=== PATIENT | male | born 1995 | race American Indian/Alaskan Native ===

== ENCOUNTER 2016-05-25 04:46 | Emergency (ER) | payer SELFPAY ==
[2016-05-25 04:47] VITALS: BMI 21.6
[2016-05-25 04:54] VITALS: O2SAT 100
--- NOTE | 2016-05-25 05:26 | ED PDOC ---
Arrival/HPI - General Chief Complaint: Flu-like Symptoms Time Seen by Provider: 05/25/16 04:50 Historian: Patient - History of Present Illness Narrative History of Present Illness (Text): 05/25/16 05:22 Doris Bui is a 21 year old male who presents to the emergency department for evaluation of generalized body aches associated with subjective fever and 1 episode of vomiting since yesterday. Patient also reports of mild headache. No sick contacts at home. Report he did not have his flu shot this year. Took Theraflu last night for minimal relief. Denies shortness of breath, diarrhea, urinary symptoms or any other complaints at this time. Time/Duration: Other (yesterday ) Symptom Onset: Gradual Symptom Course: Unchanged Severity Level: Mild Activities at Onset: Light Past Medical History - Provider Review Nursing Documentation Reviewed: Yes - Infectious Disease Hx of Infectious Diseases: None - Tetanus Immunization Tetanus Immunization: Unknown - Past Medical History Past Medical History: No Previous - Psychiatric Hx Substance Use: No - Past Surgical History Past Surgical History: No Previous - Anesthesia Hx Anesthesia: No - Suicidal Assessment Feels Threatened In Home Enviroment: No Family/Social History - Physician Review Nursing Documentation Reviewed: Yes Family/Social History: No Known Family HX Smoking Status: Never Smoked Hx Alcohol Use: No Hx Substance Use: No Hx Substance Use Treatment: No Allergies/Home Meds Allergies/Adverse Reactions: Allergies No Known Allergies Allergy (Verified 05/25/16 04:56) Review of Systems - Physician Review All systems were reviewed & negative as marked: Yes - Review of Systems Constitutional: Fatigue, Fevers Respiratory: absent: SOB, Cough, Sputum Cardiovascular: absent: Chest Pain Gastrointestinal: Nausea, Vomiting. absent: Abdominal Pain Neurological: Headache. absent: Dizziness Psychiatric: Normal Physical Exam Vital Signs Reviewed: Yes Vital Signs Temp Pulse Resp BP Pulse Ox 05/25/16 04:53 99.1 F 94 H 17 112/67 100 Temperature: Afebrile Blood Pressure: Normal Pulse: Regular Respiratory Rate: Normal Appearance: Positive for: Well-Appearing, Non-Toxic, Comfortable Pain Distress: None Mental Status: Positive for: Alert and Oriented X 3 - Systems Exam Head: Present: Atraumatic, Normocephalic Pupils: Present: PERRL Extroacular Muscles: Present: EOMI Conjunctiva: Present: Normal Ears: Present: Normal, NORMAL TM, Normal Canal. No: Erythema, TM Bulging Mouth: Present: Moist Mucous Membranes Pharnyx: Present: Normal. No: ERYTHEMA, EXUDATE, TONSILS ENLARGED Neck: Present: Normal Range of Motion Respiratory/Chest: Present: Clear to Auscultation, Good Air Exchange. No: Respiratory Distress, Accessory Muscle Use Cardiovascular: Present: Regular Rate and Rhythm, Normal S1, S2. No: Murmurs Abdomen: Present: Normal Bowel Sounds. No: Tenderness, Distention, Peritoneal Signs Back: Present: Normal Inspection Upper Extremity: Present: Normal Inspection. No: Cyanosis, Edema Lower Extremity: Present: Normal Inspection. No: Edema Neurological: Present: GCS=15, CN II-XII Intact, Speech Normal, Motor Func Grossly Intact, Normal Sensory Function Skin: Present: Warm, Dry, Normal Color. No: Rashes Psychiatric: Present: Alert, Oriented x 3, Normal Insight, Normal Concentration Medical Decision Making ED Course and Treatment: 05/25/16 05:28 Impression: A 21 year old male who presents to the emergency department complaining of generalized weakness associated with 1 bout of vomiting and fever since yesterday. Plan: -- Motrin -- Zofran -- Influenza -- Reassess and disposition Progress Notes: Re-evaluation Time: 07:10 Reassessment Condition: Re-examined, Improved - Lab Interpretations Lab Results: Lab Results 05/25/16 05:00: Influenza Typ A,B (EIA) Negative for flu a/b - Medication Orders Current Medication Orders: Discontinued Medications Ibuprofen (Motrin Tab) 400 mg PO ONCE STA Stop: 05/25/16 05:04 Last Admin: 05/25/16 05:18 Dose: 400 MG MAR Pain/Vitals Document 05/25/16 05:18 CARRIE (Rec: 05/25/16 05:18 CARRIE [id number]) Pain Reassessment Is This A Pain ReAssessment? Yes Sleep Is patient sleeping during reassessment? No Presence of Pain Presence of Pain Yes Location Pain Location Body Site Generalized Ondansetron HCl (Zofran Odt) 8 mg PO STAT STA Stop: 05/25/16 05:03 Last Admin: 05/25/16 05:17 Dose: 8 MG - Scribe Statement The provider has reviewed the documentation as recorded by the Evelia Clifford Provider Attestation: All medical record entries made by the Scribe were at my direction and personally dictated by me. I have reviewed the chart and agree that the record accurately reflects my personal performance of the history, physical exam, medical decision making, and the department course for this patient. I have also personally directed, reviewed, and agree with the discharge instructions and disposition. Disposition/Present on Arrival - Present on Arrival Any Indicators Present on Arrival: No History of DVT/PE: No History of Uncontrolled Diabetes: No Urinary Catheter: No History of Decub. Ulcer: No History Surgical Site Infection Following: None - Disposition Have Diagnosis and Disposition been Completed?: Yes Diagnosis: Viral infection Disposition: HOME/ ROUTINE Disposition Time: 07:11 Condition: GOOD Discharge Instructions (ExitCare): Viral Syndrome (ED) Prescriptions: Oseltamivir [Tamiflu] 75 mg PO BID #14 cap Ondansetron [Zofran Odt] 8 mg PO TID PRN #10 odt PRN Reason: Nausea/Vomiting
[2016-05-25 07:44] VITALS: BP 108/72; PULSE 80; RESP 16; TEMP 99
== END 2016-05-25 07:47 | disposition home or self-care (01) ==
LOC: ED 04:46
DX: B34.9 Viral infection, unspecified (principal)

== ENCOUNTER 2017-12-06 10:19 | Emergency (ER) | payer OTHER ==
[2017-12-06 10:49] VITALS: RESP 18; BMI 20.9
[2017-12-06] MEDS ORDERED: cefTRIAXone (Rocephin) 250 mg Inj IM STA (11:00)
--- NOTE | 2017-12-06 11:15 | ED PDOC ---
Addendum entered and electronically signed by Molly Burns PA-C, PA-C 12/08/17 16:25: Addendum Addendum: 12/08/17 16:24 +Chlamydia, pt notified. Advised to f/u, pt verbalize understanding of instructions. Original Note: Arrival/HPI - General Historian: Patient - History of Present Illness Narrative History of Present Illness (Text): 12/06/17 11:12 22yo male with no pmhx who present requesting treatment for chlamydia. States his girlfriend tested positive and was treated for chlamydia last week. Reports having penile discharge 2weeks ago. Denies abdominal pain, penile lesion, rash, any other complaint. <QuanHappiness A - Last Filed: 12/06/17 11:12> <Molly Burns PA-C - Last Filed: 12/08/17 16:24> <David Cantu - Last Filed: 12/11/17 18:58> - General Chief Complaint: Male Genitourinary Time Seen by Provider: 12/06/17 10:30 Past Medical History - Provider Review Nursing Documentation Reviewed: Yes - Infectious Disease Hx of Infectious Diseases: None - Tetanus Immunization Tetanus Immunization: Unknown - Past Medical History Past Medical History: No Previous - Psychiatric Hx Substance Use: No - Past Surgical History Past Surgical History: No Previous - Anesthesia Hx Anesthesia: No - Suicidal Assessment Feels Threatened In Home Enviroment: No <Diru,Happiness A - Last Filed: 12/06/17 11:12> Family/Social History - Physician Review Nursing Documentation Reviewed: Yes Family/Social History: Unknown Family HX Smoking Status: Never Smoked Hx Alcohol Use: No Hx Substance Use: No Hx Substance Use Treatment: No <Diru,Happiness A - Last Filed: 12/06/17 11:12> Allergies/Home Meds <DiruHappiness A - Last Filed: 12/06/17 11:12> <Molly Burns PA-C - Last Filed: 12/08/17 16:24> <David Cantu - Last Filed: 12/11/17 18:58> Allergies/Adverse Reactions: Allergies No Known Allergies Allergy (Verified 12/06/17 10:49) Home Medications: Home Meds Medication Instructions Recorded Confirmed RX: No Known Home Med 12/06/17 12/06/17 Review of Systems - Physician Review All systems were reviewed & negative as marked: Yes - Review of Systems Constitutional: Normal Eyes: Normal ENT: Normal Respiratory: Normal Cardiovascular: Normal Gastrointestinal: Normal Genitourinary Male: Other (Penile discharge) Musculoskeletal: Normal Skin: Normal Neurological: Normal Endocrine: Normal Hemo/Lymphatic: Normal Psychiatric: Normal <[employer] A - Last Filed: 12/06/17 11:12> Physical Exam Vital Signs Reviewed: Yes Vital Signs Temp Pulse Resp BP Pulse Ox 12/06/17 10:40 97.7 F 64 18 125/45 L 98 Temperature: Afebrile Blood Pressure: Normal Pulse: Regular Respiratory Rate: Normal Appearance: Positive for: Well-Appearing, Non-Toxic, Comfortable Pain Distress: None Mental Status: Positive for: Alert and Oriented X 3 - Systems Exam Head: Present: Atraumatic, Normocephalic Pupils: Present: PERRL Extroacular Muscles: Present: EOMI Conjunctiva: Present: Normal Mouth: Present: Moist Mucous Membranes Neck: Present: Normal Range of Motion Respiratory/Chest: Present: Clear to Auscultation, Good Air Exchange. No: Respiratory Distress, Accessory Muscle Use Cardiovascular: Present: Regular Rate and Rhythm, Normal S1, S2. No: Murmurs Abdomen: No: Tenderness, Distention, Peritoneal Signs Back: Present: Normal Inspection Upper Extremity: Present: Normal Inspection. No: Cyanosis, Edema Lower Extremity: Present: Normal Inspection. No: Edema Neurological: Present: GCS=15, CN II-XII Intact, Speech Normal Skin: Present: Warm, Dry, Normal Color. No: Rashes Psychiatric: Present: Alert, Oriented x 3, Normal Insight, Normal Concentration <Eve A - Last Filed: 12/06/17 11:12> Vital Signs Temp Pulse Resp BP Pulse Ox 12/06/17 12:03 97.8 F 72 18 127/69 99 12/06/17 10:40 97.7 F 64 18 125/45 L 98 <David Cantu - Last Filed: 12/11/17 18:58> Medical Decision Making - Medication Orders Current Medication Orders: Discontinued Medications Azithromycin (Zithromax) 1,000 mg PO STAT STA; Protocol Stop: 12/06/17 11:11 Ceftriaxone Sodium (Rocephin) 250 mg IM STAT STA; Protocol Stop: 12/06/17 11:01 <Frida Glass - Last Filed: 12/06/17 11:12> - Lab Interpretations Lab Results: Lab Results 12/06/17 10:55: C.trachomatis RNA (TMA) Detected H, N.gonorrhoeae RNA (TMA) Not detected - Medication Orders Current Medication Orders: Discontinued Medications Azithromycin (Zithromax) 1,000 mg PO STAT STA; Protocol Stop: 12/06/17 11:11 Last Admin: 12/06/17 11:51 Dose: 1,000 mg Ceftriaxone Sodium (Rocephin) 250 mg IM STAT STA; Protocol Stop: 12/06/17 11:01 Last Admin: 12/06/17 11:51 Dose: 250 mg IM Administration Charges Document 12/06/17 11:51 HI (Rec: 12/06/17 11:51 HI [id number]) Injection Site MAR Injection Site Left Gluteus Francois Charges for Administration # of IM Administrations 1 <David Cantu - Last Filed: 12/11/17 18:58> - PA / SENIOR CYBER SECURITY ANALYST / Resident Statement / has reviewed & agrees with the documentation as recorded. <David Cantu - Last Filed: 12/11/17 18:58> Disposition/Present on Arrival - Present on Arrival Any Indicators Present on Arrival: No History of DVT/PE: No History of Uncontrolled Diabetes: No Urinary Catheter: No History of Decub. Ulcer: No History Surgical Site Infection Following: None - Disposition Have Diagnosis and Disposition been Completed?: Yes Disposition Time: 11:20 Patient Plan: Discharge <Frida Glass - Last Filed: 12/06/17 11:12> <Molly Burns PA-C - Last Filed: 12/08/17 16:24> <David Cantu - Last Filed: 12/11/17 18:58> - Disposition Diagnosis: Venereal disease contact Disposition: HOME/ ROUTINE Condition: STABLE Discharge Instructions (ExitCare): Sexually-Transmitted Diseases Additional Instructions: Follow up with your Doctor Return to ED for any new symptoms Referrals: Della Irizarry MD [Medical Doctor] - Follow up with primary Forms: [employer] (Khmer)
[2017-12-06 12:06] VITALS: BP 127/69; PULSE 72; TEMP 97.8; O2SAT 99
== END 2017-12-06 12:06 | disposition home or self-care (01) ==
LOC: ED 10:19
DX: Z20.2 Contact with and (suspected) exposure to infections with a predominantly sexual mode of transmission (principal)
CPT/HCPCS: 87491; 87591; 96372; 99283; J0696

== ENCOUNTER 2018-01-18 03:47 | Emergency (ER) | payer SELFPAY ==
[2018-01-18 03:48] VITALS: BMI 21.6
--- NOTE | 2018-01-18 04:17 | ED PDOC ---
Arrival/HPI - General Chief Complaint: Lower Extremity Problem/Injury Time Seen by Provider: 01/18/18 04:11 Historian: Patient - History of Present Illness Narrative History of Present Illness (Text): 01/18/18 04:16 Doris Bui is a 22 year old male who presents to the Emergency department complaining of right great toe. Patient states a chair fell on to his right great toe yesterday evening and has been experiencing pain with swelling to the area since then. Patient was initially seen at another Emergency department in [place] for similar complaint and patient states they "cut holes and drained" his toe, however patient is still experiencing pain. Patient denies any weakness/numbness/tingling in the extremity, decreased range of motion, other trauma/injury, or any other complaints. Symptom Onset: Gradual Symptom Course: Unchanged Activities at Onset: Light Context: Home Past Medical History - Provider Review Nursing Documentation Reviewed: Yes - Infectious Disease Hx of Infectious Diseases: None - Tetanus Immunization Tetanus Immunization: Unknown - Past Medical History Past Medical History: No Previous - Psychiatric Hx Substance Use: No - Past Surgical History Past Surgical History: No Previous - Anesthesia Hx Anesthesia: No - Suicidal Assessment Feels Threatened In Home Enviroment: No Family/Social History - Physician Review Nursing Documentation Reviewed: Yes Family/Social History: Unknown Family HX Smoking Status: Never Smoked Hx Alcohol Use: No Hx Substance Use: No Hx Substance Use Treatment: No Allergies/Home Meds Allergies/Adverse Reactions: Allergies No Known Allergies Allergy (Verified 01/18/18 04:03) Review of Systems - Physician Review All systems were reviewed & negative as marked: Yes - Review of Systems Respiratory: absent: SOB Cardiovascular: absent: Chest Pain Musculoskeletal: Other (+right great toe pain). absent: Back Pain, Neck Pain Physical Exam Vital Signs Reviewed: Yes Vital Signs Pulse Resp BP Pulse Ox 01/18/18 03:55 76 18 149/79 98 Temperature: Afebrile Blood Pressure: Normal Pulse: Regular Respiratory Rate: Normal Appearance: Positive for: Well-Appearing, Non-Toxic, Comfortable Pain Distress: None Mental Status: Positive for: Alert and Oriented X 3 - Systems Exam Head: Present: Atraumatic, Normocephalic Pupils: Present: PERRL Extroacular Muscles: Present: EOMI Conjunctiva: Present: Normal Mouth: Present: Moist Mucous Membranes Lower Extremity: Present: NORMAL PULSES, Other (Right 1st digit subungal hematoma, right 1st digit nail lifting). No: Edema, Cyanosis Neurological: Present: GCS=15, CN II-XII Intact, Speech Normal Skin: Present: Warm, Dry, Normal Color. No: Rashes Psychiatric: Present: Alert, Oriented x 3, Normal Insight, Normal Concentration Medical Decision Making ED Course and Treatment: 01/18/18 04:17 Impression: 22 year old male complaining of right great toe pain and swelling. Plan: -- XR Right Foot -- Percocet -- Reassess and disposition Prior Visits: Notes and results from previous visits were reviewed. Progress Notes: Procedure: Subungal Hematoma Drainage Performed by the emergency provider Indication: Subungal hematoma Location: Right Great Tie Preparation: The area was prepped and draped in the usual sterile fashion and was cleansed with sterile saline and [place]. Procedure: Subungal hematoma was incised with a high temperature cautery. Approximately 2 cc of blood was obtained. A dressing was applied by the RN. Post-Procedure: The patient tolerated the procedure well and there were no complications. CSM remains intact. Post procedure dressing applied. 01/18/18 04:55 XR Right Foot reviewed, shows no acute processes/fractures. 01/18/18 05:00 On re-evaluation, patient feels better and is in no acute distress. I have discussed the results and plan with the patient, who expresses understanding. Patient in agreement with plan to be discharged home. Patient is stable for discharge. Patient was instructed to follow up with physician or return if symptoms worsen or new concerning symptoms arise. - RAD Interpretation Decorative Engraver: ED Physician - Scribe Statement The provider has reviewed the documentation as recorded by the Evelia Noe Provider Scribe Attestation: All medical record entries made by the Corrinaibash were at my direction and personally dictated by me. I have reviewed the chart and agree that the record accurately reflects my personal performance of the history, physical exam, medical decision making, and the department course for this patient. I have also personally directed, reviewed, and agree with the discharge instructions and disposition. Disposition/Present on Arrival - Present on Arrival Any Indicators Present on Arrival: No History of DVT/PE: No History of Uncontrolled Diabetes: No Urinary Catheter: No History of Decub. Ulcer: No History Surgical Site Infection Following: None - Disposition Have Diagnosis and Disposition been Completed?: Yes Diagnosis: Subungual hematoma of great toe of right foot Disposition: HOME/ ROUTINE Disposition Time: 05:00 Condition: IMPROVED Discharge Instructions (ExitCare): Toe Injury (DC) Prescriptions: Tramadol HCl [Ultram] 50 mg PO QID #8 tab Referrals: Rodney Leggett DPM [Staff Provider] - Follow up with primary Forms: [employer] (Albanian)
[2018-01-18] MEDS ORDERED: Oxycodone/Acetaminophen 5/325 mg Tab PO STA (04:22)
[2018-01-18 05:51] VITALS: BP 122/71; PULSE 80; RESP 16; O2SAT 97
--- NOTE | 2018-01-18 09:58 | RAD ---
Date of service: 01/18/2018 PROCEDURE: Right Foot Radiographs. HISTORY: injury COMPARISON: None. FINDINGS: BONES: Normal. No fracture. JOINTS: Normal. SOFT TISSUES: Normal. OTHER FINDINGS: None. IMPRESSION: Normal right foot radiographs.
== END 2018-01-18 05:40 | disposition home or self-care (01) ==
LOC: ED 03:47
DX: S90.111A Contusion of right great toe without damage to nail, initial encounter (principal); W22.8XXA Striking against or struck by other objects, initial encounter; Y92.9 Unspecified place or not applicable

== ENCOUNTER 2018-01-23 16:42 | Emergency (ER) | payer OTHER ==
[2018-01-23 16:45] VITALS: BMI 20.9
--- NOTE | 2018-01-23 17:05 | ED PDOC ---
Arrival/HPI - General Chief Complaint: Trauma Time Seen by Provider: 01/23/18 16:55 Historian: Patient - History of Present Illness Narrative History of Present Illness (Text): 01/23/18 16:55 22 year old male, with no significant past medical history, presents to the emergency department complaining of right toe injury and bleeding. Patient was seen in the ER on 01/18/18 s/p dropping a chair on his right foot. He was discharged with a podiatry follow up after drainage of subungual hematoma. Patient never followed up with podiatry. He states over the last few days, his right great toe has been more bruised and swollen. This afternoon he states he bumped it against a door and popped the blister causing bleeding. Patient was unable to control the bleeding which prompted this visit to emergency room. Patient denies any fever, chills, chest pain, shortness of breath, abdominal pain, nausea, vomiting, diarrhea, urinary symptoms, back pain, neck pain, numbness/parathesia, headache, dizziness, or any other complaints. PMD: None Time/Duration: Other (last few days) Symptom Onset: Gradual Symptom Course: Unchanged Activities at Onset: Light Context: Home Past Medical History - Provider Review Nursing Documentation Reviewed: Yes - Infectious Disease Hx of Infectious Diseases: None - Tetanus Immunization Tetanus Immunization: Unknown - Past Medical History Past Medical History: No Previous - Psychiatric Hx Substance Use: No - Past Surgical History Past Surgical History: No Previous - Anesthesia Hx Anesthesia: No - Suicidal Assessment Feels Threatened In Home Enviroment: No Family/Social History - Physician Review Nursing Documentation Reviewed: Yes Family/Social History: No Known Family HX Smoking Status: Never Smoked Hx Alcohol Use: No Hx Substance Use: No Hx Substance Use Treatment: No Allergies/Home Meds Allergies/Adverse Reactions: Allergies No Known Allergies Allergy (Verified 01/23/18 16:47) Review of Systems - Physician Review All systems were reviewed & negative as marked: Yes - Review of Systems Constitutional: absent: Fevers, Other (chills) Respiratory: absent: SOB Cardiovascular: absent: Chest Pain Gastrointestinal: absent: Diarrhea, Nausea, Vomiting Genitourinary Male: absent: Frequency, Hematuria Musculoskeletal: absent: Back Pain, Neck Pain Skin: Other (right toe injury and bleeding) Neurological: absent: Headache, Dizziness, Other (weakness/parathesia) Physical Exam Vital Signs Reviewed: Yes Vital Signs Temp Pulse Resp BP Pulse Ox 01/23/18 16:45 97.8 F 64 17 110/70 98 Temperature: Afebrile Blood Pressure: Normal Pulse: Regular Respiratory Rate: Normal Appearance: Positive for: Well-Appearing, Non-Toxic, Comfortable Pain Distress: None Mental Status: Positive for: Alert and Oriented X 3 - Systems Exam Head: Present: Atraumatic, Normocephalic Pupils: Present: PERRL Extroacular Muscles: Present: EOMI Conjunctiva: Present: Normal Mouth: Present: Moist Mucous Membranes Neck: Present: Normal Range of Motion Respiratory/Chest: Present: Clear to Auscultation, Good Air Exchange. No: Respiratory Distress, Accessory Muscle Use Cardiovascular: Present: Regular Rate and Rhythm, Normal S1, S2. No: Murmurs Upper Extremity: Present: Normal Inspection. No: Cyanosis, Edema Lower Extremity: Present: Normal ROM, Tenderness, Swelling, Neurovascularly Intact, Other (Ecchymosis to the right great toe with 1.5 cm tear on medial aspect. No nail bed involvment. No active bleeding.). No: Edema Neurological: Present: GCS=15, CN II-XII Intact, Speech Normal Skin: Present: Warm, Dry, Normal Color. No: Rashes Psychiatric: Present: Alert, Oriented x 3, Normal Insight, Normal Concentration Medical Decision Making ED Course and Treatment: 01/23/18 17:00 Impression: 22 year old male presents complaining of right great toe injury and bleeding after bumped it against a door and popped a blister. Plan: -- Keflex -- Foot right great toe x-ray -- Reassess and disposition Prior Visits: Notes and results from previous visits were reviewed. Progress Notes: 01/23/18 17:20 Foot right great toe x-ray Impression: As read by me and Dr. Cervantes, negative for fracture. 01/23/18 17:[address] Cervantes agricultural education professor prevocational/rehabilitation counselor who recommended dressing, surgical shoe, and Keflex. Reviewed imaging. States negative for fracture, most likely deep bone bruise and the nail does not need to be removed and will most likely fall off on its own. Recommended follow up with Dr. Yu. Area cleaned and dressed by me. Pt given surgical shoe and crutches. Patient is in no acute distress. I have discussed the results and plan with the patient, who expresses understanding. Patient given the opportunity to ask question, all questions were answered and there is agreement with the plan to discharge the patient home with prescription for Keflex. Patient is stable for discharge. Patient was instructed to follow up with Dr. Yu, and return if symptoms persist/worsen or new concerning symptoms arise. - RAD Interpretation Mapper: Top Taper Machine (Podiatry resident Racquel Cervantes) - Scribe Statement The provider has reviewed the documentation as recorded by the Evelia Coulter Provider Scribe Attestation: All medical record entries made by the Scribe were at my direction and personally dictated by me. I have reviewed the chart and agree that the record accurately reflects my personal performance of the history, physical exam, medical decision making, and the department course for this patient. I have also personally directed, reviewed, and agree with the discharge instructions and disposition. Disposition/Present on Arrival - Present on Arrival Any Indicators Present on Arrival: No History of DVT/PE: No History of Uncontrolled Diabetes: No Urinary Catheter: No History of Decub. Ulcer: No History Surgical Site Infection Following: None - Disposition Have Diagnosis and Disposition been Completed?: Yes Diagnosis: Toe injury Disposition: HOME/ ROUTINE Disposition Time: 18:30 Patient Plan: Discharge Condition: STABLE Discharge Instructions (ExitCare): Wound Care (DC) Additional Instructions: Keep wound clean, dry, and covered Take antibiotic as directed four times daily for 1 week Wear surgical shoe until followup Followup with Dr. Yu in office or wound care center Return to ER for any new/worsening symptoms Prescriptions: Cephalexin [Keflex] 500 mg PO Q6H #28 capsule Referrals: Della Irizarry MD [Medical Doctor] - Follow up with primary Fredy Yu DPM [Doctor Podiatric Medicine] - Follow up with primary [facility] [Outside] - Follow up with primary [employer] [Outside] - Follow up with primary Forms: [employer] (S[place] T[place]an), WORK NOTE
[2018-01-23 19:37] VITALS: BP 112/78; PULSE 70; TEMP 97.9; O2SAT 99
[2018-01-23 19:38] VITALS: RESP 18
--- NOTE | 2018-01-24 09:38 | RAD ---
Date of service: 01/23/2018 PROCEDURE: Right Foot Radiographs. HISTORY: toe injury COMPARISON: None. FINDINGS: BONES: Normal. No fracture. JOINTS: Normal. SOFT TISSUES: Normal. OTHER FINDINGS: None. IMPRESSION: Normal right foot radiographs.
== END 2018-01-23 19:50 | disposition home or self-care (01) ==
LOC: ED 16:42
DX: S99.921A Unspecified injury of right foot, initial encounter (principal); W22.09XA Striking against other stationary object, initial encounter; Y92.9 Unspecified place or not applicable